=== PATIENT | male | born 1950 | race Caucasian/White ===

== ENCOUNTER 2017-02-13 12:30 | Emergency (ER) | payer OTHER ==
[2017-02-13] MEDS ORDERED: NS 1,000 ML IV ONE (12:52)
--- NOTE | 2017-02-13 13:01 | EDPHY ---
H & P Time Seen by Provider: 02/13/17 12:45 HPI/ROS: CHIEF COMPLAINT: Fatigue HISTORY OF PRESENT ILLNESS: Patient had just been feeling much more tired over the last 2 weeks. Feels achy is no energy and symptoms are worsening and severe now. Associated with a feeling of having intermittent low-grade fever, intermittent nausea last night which returned. No vomiting or diarrhea. No skin rash. No double vision or sore throat or dental problems. No chest pain or abdominal pain. REVIEW OF SYSTEMS: Eye: no change in vision ENT: no sore throat Cardiac: no chest pain or syncope Pulmonary: no cough or SOB Abdomen: no vomiting, diarrhea, abdominal pain Musculoskeletal: Back pain ongoing Skin: no rash Neuro: HPI no weakness or numbness in extremities, no trouble with balance or strength or sensation. Mild headache, only today. Constitutional: HPI : no urinary symptoms A comprehensive 10 point review of systems is otherwise negative aside from elements mentioned in the history of present illness. PAST MEDICAL HISTORY: Hypertension and high cholesterol. 3 years ago he had angiogram in [place], which showed nonobstructive coronary disease. Social history: Moved to [place] from [place] 2 years ago, last foreign travel was [employer] in September of this year. No known tick exposure, was recently in [place]. General Appearance: Alert and conversant, cooperative. Eyes: No scleral icterus. ENT, Mouth: Normal mucous membranes. Normal pharynx, no trismus or gum swelling. Respiratory: Normal respiratory effort, breath sounds equal, lungs are clear to auscultation. No rales or rhonchi. Cardiovascular: Regular rate and rhythm. No murmur. Gastrointestinal: Abdomen is soft and non tender. Neurological: Alert and oriented x3. Normally conversant. Face symmetric, normal movement and sensation in all extremities. Skin: Warm and dry, no rashes. Musculoskeletal: No peripheral edema and no joint swelling. No meningeal signs, normal range of motion of the neck. Psychiatric: Not agitated. Emergency Department course/MDM: Chest x-ray, multiple lab tests, UA. EKG. Short of breath at night, pretest probability for pulmonary embolism low likelihood. Discussed with Juan David Ingram for Dr. Glass, will add on TSH and West Nile AB and PCP office will followup with him and the results of those tests. 1410: results and f/u plan discussed with patient and family. Discussed that no definitive diagnosis established today, I think it is safe for him to follow up with his primary care physician early next week. Smoking Status: Never smoked Constitutional: Initial Vital Signs Temperature (C) 37.5 C 02/13/17 12:41 Heart Rate 88 02/13/17 12:41 Respiratory Rate 16 02/13/17 12:41 Blood Pressure 136/87 H 02/13/17 12:41 O2 Sat (%) 94 02/13/17 12:41 O2 Delivery Mode Room Air Allergies/Adverse Reactions: No Known Allergies Allergy (Unverified 02/13/17 12:45) Home Medications: Medication Instructions Recorded amLODIPine BESYLATE 02/13/17 Medical Decision Making - Diagnostics EKG Interpretation: 12-lead EKG interpreted by me; official reading is in trace master. My interpretation is sinus rhythm with atrial premature complex, no ischemic changes, rate 78. Imaging Results: Imaging Impressions Chest X-Ray 02/13/17 12:58 Impression: Peribronchial thickening suggests airways disease. Lingular segment opacity could reflect atelectasis or superimposed pneumonia. Chest x-ray shows scarring, patient states that he has been evaluated for this before, I think it is likely old. Imaging: I viewed and interpreted images myself Differential Diagnosis: Differential considered including but not limited to viral syndrome, meningitis , pneumonia, acute coronary syndrome, anemia or leukemia, other metabolic. - Data Points Laboratory Results: Laboratory Results 02/13/17 13:08 02/13/17 13:08 02/13/17 02/13/17 02/13/17 13:10 13:08 13:08 WBC RBC Hgb Hct MCV MCH MCHC RDW Plt Count MPV Neut % (Auto) Lymph % (Auto) [place] % (Auto) Eos % (Auto) Baso % (Auto) Nucleat RBC Rel Count Absolute Neuts (auto) Absolute Lymphs (auto) Absolute Monos (auto) Absolute Eos (auto) Absolute Basos (auto) Absolute Nucleated RBC Immature Gran % Immature Gran # D-Dimer 0.37 ug/mLFEU ug/mLFEU (0.00-0.50) Sodium Potassium Chloride Carbon Dioxide Anion Gap BUN Creatinine Estimated GFR Glucose Calcium Creatine Kinase Troponin I NT-Pro-B Natriuret Pep TSH Pending Urine Color YELLOW Urine Appearance CLEAR Urine pH 5.0 (5.0-7.5) Ur Specific [place] <= 1.005 (1.002-1.030) Urine Protein NEGATIVE (NEGATIVE) Urine Ketones NEGATIVE (NEGATIVE) Urine Blood TRACE H (NEGATIVE) Urine Nitrate NEGATIVE (NEGATIVE) Urine Bilirubin NEGATIVE (NEGATIVE) Urine Urobilinogen 0.2 EU EU (0.2-1.0) Ur Leukocyte Esterase NEGATIVE (NEGATIVE) Urine RBC 0-1 /hpf /hpf (0-3) Urine WBC NONE SEEN /hpf /hpf (0-3) Ur Epithelial Cells TRACE /lpf /lpf (NONE-1+) Urine Bacteria TRACE /hpf H /hpf (NONE SEEN) Urine Mucus TRACE /lpf /lpf (NONE-1+) Urine Glucose NEGATIVE (NEGATIVE) 02/13/17 02/13/17 13:08 13:08 WBC 4.84 10^3/uL 10^3/uL (3.80-9.50) RBC 5.13 10^6/uL 10^6/uL (4.40-6.38) Hgb 15.1 g/dL g/dL (13.7-17.5) Hct 43.5 % % (40.0-51.0) MCV 84.8 fL fL (81.5-99.8) MCH 29.4 pg pg (27.9-34.1) MCHC 34.7 g/dL g/dL (32.4-36.7) RDW 12.3 % % (11.5-15.2) Plt Count 246 10^3/uL 10^3/uL (150-400) MPV 9.5 fL fL (8.7-11.7) Neut % (Auto) 55.8 % % (39.3-74.2) Lymph % (Auto) 34.9 % % (15.0-45.0) [place] % (Auto) 6.4 % % (4.5-13.0) Eos % (Auto) 2.3 % % (0.6-7.6) Baso % (Auto) 0.4 % % (0.3-1.7) Nucleat RBC Rel Count 0.0 % % (0.0-0.2) Absolute Neuts (auto) 2.70 10^3/uL 10^3/uL (1.70-6.50) Absolute Lymphs (auto) 1.69 10^3/uL 10^3/uL (1.00-3.00) Absolute Monos (auto) 0.31 10^3/uL 10^3/uL (0.30-0.80) Absolute Eos (auto) 0.11 10^3/uL 10^3/uL (0.03-0.40) Absolute Basos (auto) 0.02 10^3/uL 10^3/uL (0.02-0.10) Absolute Nucleated RBC 0.00 10^3/uL 10^3/uL (0-0.01) Immature Gran % 0.2 % % (0.0-1.1) Immature Gran # 0.01 10^3/uL 10^3/uL (0.00-0.10) D-Dimer Sodium 139 mEq/L mEq/L (134-144) Potassium 4.3 mEq/L mEq/L (3.5-5.2) Chloride 104 mEq/L mEq/L (97-110) Carbon Dioxide 24 mEq/l mEq/l (22-31) Anion Gap 11 mEq/L mEq/L (8-16) BUN 13 mg/dL mg/dL (7-23) Creatinine 0.8 mg/dL mg/dL (0.7-1.3) Estimated GFR > 60 Glucose 111 mg/dL H mg/dL (70-100) Calcium 8.7 mg/dL mg/dL (8.5-10.4) Creatine Kinase 79 IU/L IU/L (0-224) Troponin I < 0.012 ng/mL ng/mL (0-0.034) NT-Pro-B Natriuret Pep 131 pg/mL H pg/mL (0-125) TSH Urine Color Urine Appearance Urine pH Ur Specific [place] Urine Protein Urine Ketones Urine Blood Urine Nitrate Urine Bilirubin Urine Urobilinogen Ur Leukocyte Esterase Urine RBC Urine WBC Ur Epithelial Cells Urine Bacteria Urine Mucus Urine Glucose Medications Given: Discontinued Medications Sodium Chloride (Ns) 1,000 mls @ 0 mls/hr IV ONCE ONE PRN Reason: Wide Open Stop: 02/13/17 12:53 Last Admin: 02/13/17 13:04 Dose: 1,000 mls Departure - Departure Disposition: Home, Routine, Self-Care Clinical Impression: Fatigue Qualifiers: Fatigue type: unspecified Qualified Code(s): R53.83 - Other fatigue Condition: Good Instructions: Fatigue (ED) Additional Instructions: You have a TSH (thyroid test) and West Nile pending; you can call in 48-72 hours for results to [phone]; also Dr. Glass's office will be following up on these results as well. Referrals: Kelly Glass MD [Primary Care Provider] - As per Instructions
[2017-02-13 13:22] LABS: % IMMATURE GRANULYOCYTES 0.2 % (0.0-1.1); ABSOLUTE IMMATURE GRANULOCYTES 0.01 10^3/uL (0.00-0.10); ADD DIFF? NO; ADD MORPH? NO; ADD SCAN? NO; ATYPICAL LYMPHOCYTE FLAG 60 (0-99); FRAGMENT RBC FLAG 0 (0-99); HEMATOCRIT 43.5 % (40.0-51.0); HEMOGLOBIN 15.1 g/dL (13.7-17.5); LEFT SHIFT FLG 0 (0-99); LIPEMIA HEMOLYSIS FLAG 90 (0-99); MEAN CELL HEMOGLOBIN 29.4 pg (27.9-34.1); MEAN CELL HEMOGLOBIN CONCENTR. 34.7 g/dL (32.4-36.7); MEAN CELL VOLUME 84.8 fL (81.5-99.8); MEAN PLATELET VOLUME 9.5 fL (8.7-11.7); PLATELET CLUMPS FLAG 10 (0-99); PLATELET COUNT 246 10^3/uL (150-400); RED BLOOD CELL COUNT 5.13 10^6/uL (4.40-6.38); RED CELL DISTRIBUTION WIDTH 12.3 % (11.5-15.2)
--- NOTE | 2017-02-13 13:31 | CPEKG ---
Heart Rate: 78 RR Interval: 769 P-R Interval: 152 QRSD Interval: 92 QT Interval: 412 QTC Interval: 470 P [place]: 68 QRS [place]: 66 T Wave [place]: 31 EKG Severity - OTHERWISE NORMAL ECG - EKG Impression: SINUS RHYTHM EKG Impression: ATRIAL PREMATURE COMPLEX Electronically Signed By: Ermias Lopez 13-Feb-2017 13:31:08
[2017-02-13 13:35] LABS: COLOR YELLOW; LEUKOCYTE ESTERASE,URINE NEGATIVE (NEGATIVE); NITRITE,URINE NEGATIVE (NEGATIVE)
[2017-02-13 13:39] LABS: ANION GAP 11 mEq/L (8-16); CALCIUM 8.7 mg/dL (8.5-10.4); CARBON DIOXIDE 24 mEq/l (22-31); CHLORIDE 104 mEq/L (97-110); CREATININE 0.8 mg/dL (0.7-1.3); GLOMERULAR FILTRATION RATE > 60; GLUCOSE 111 mg/dL (70-100); POTASSIUM 4.3 mEq/L (3.5-5.2); SODIUM 139 mEq/L (134-144)
[2017-02-13 13:55] LABS: BACTERIA TRACE /hpf (NONE SEEN); MUCUS TRACE /lpf (NONE-1+); RBC,URINE 0-1 /hpf (0-3); WBC,URINE NONE SEEN /hpf (0-3)
[2017-02-13 13:59] LABS: TROPONIN I < 0.012 ng/mL (0-0.034)
[2017-02-13 14:24] VITALS: BP 132/79; PULSE 78; RESP 18; TEMP 98.2; O2SAT 96
[2017-02-17 13:08] LABS: INTERPRETATION See Comments; WEST NILE VIRUS IGG Negative (Negative); WEST NILE VIRUS IGM Positive (Negative)
== END 2017-02-13 14:24 | disposition home or self-care (01) ==
LOC: CED 12:30
DX: R53.83 Other fatigue (principal); I10 Essential (primary) hypertension
CPT/HCPCS: 71020-PO; 80048-PO; 81003-PO; 81015-PO; 82550-PO; 83880-PO; 84443-PO; 84484-PO; 85025-PO; 85378-PO

== ENCOUNTER 2017-02-14 21:44 | Emergency (ER) | payer OTHER ==
[2017-02-14] MEDS ORDERED: HYDROmorphONE/DILAUDID 1 MG/ML SYR IVP ONE ×2 (22:35→23:35)
[2017-02-14] MEDS ORDERED: NS 1,000 ML IV ONE (22:36)
[2017-02-14] MEDS ORDERED: HYDROCOD/APAP 5/325 PREPACK#6 BTL TAKEHOME ONE (22:37)
--- NOTE | 2017-02-14 22:41 | EDPHY ---
H & P Stated Complaint: ongoing headache for 2 weeks,getting worse Time Seen by Provider: 02/14/17 22:06 HPI/ROS: CHIEF COMPLAINT: Headache and malaise HISTORY OF PRESENT ILLNESS: This is a generally healthy 66-year-old male who was seen for similar complaints yesterday. He returns today complaining of worsening headache. Headache is global, a dull sensation. He has been ill for the past 2 weeks with fever, fatigue and myalgias. Yesterday he developed a mild headache. Today the headache has worsened. He has been taking Tylenol and ibuprofen every 6 hours with no lasting relief. He has been febrile at home ; mostly "low-grade" temperatures but one temperature recorded today of 100.4 F. he has not experienced confusion, difficulty with speech, new numbness, new weakness, trouble walking, change in vision, or difficulty swallowing. He has not been out of the country. He did spend a month in [place] not long ago. He is outside a great deal and has been bitten by mosquitoes since returning to [place]. He has not had rash. He denies any respiratory symptoms, abdominal pain, diarrhea, constipation, or urinary symptoms. REVIEW OF SYSTEMS: A ten point review of systems was performed and is negative with the exception of the items mentioned in the HPI. Source: Patient, Family Exam Limitations: No limitations - Personal History Current Tetanus Diphtheria and Acellular Pertussis (TDAP): Yes - Medical/Surgical History Hx Asthma: No Hx Chronic Respiratory Disease: No Hx Diabetes: No Hx Cardiac Disease: No Hx Renal Disease: No Hx Cirrhosis: No Hx Alcoholism: No Hx HIV/AIDS: No Hx Splenectomy or Spleen Trauma: No Other PMH: HTN. high cholesterol - Social History Smoking Status: Never smoked Additional Social History: He lives with his for 47 years. Worked as a contractor. - Physical Exam Exam: General Appearance: Alert. Vital signs reviewed. Blood pressure 152/90. Temperature 37.8. Eyes: Pupils equal and round, no conjunctival injection, no discharge. Anicteric. ENT, Mouth: Mucous membranes are moist, no oropharyngeal erythema or edema. Neck: No lymphadenopathy, supple. No meningeal signs. Respiratory: Lungs are clear to auscultation; no wheezes, rales, or rhonchi. Cardiovascular: Regular rate and rhythm; no murmur, rub, or gallop. Gastrointestinal: Abdomen is soft and nontender, no masses or organomegaly, bowel sounds normal. Skin: Warm and dry, no rashes on exposed skin, normal color. Back: Nontender to palpation over the thoracolumbar spine. No CVAT. Extremities: No lower extremity edema, no calf tenderness or swelling. Neurological: Alert and oriented. Moving all four extremities easily and equally. Cranial nerves II through XII are examined and are intact (visual acuity not tested). Strength is 5 over 5 bilaterally with testing of all major motor groups. Sensation is intact to light touch over all 4 extremities. Deep tendon reflexes are 2+ in the biceps and knees bilaterally. Gait is normal. [id number] is performed accurately. Psychiatric: Normal affect. Constitutional: Initial Vital Signs Temperature (C) 37.8 C 02/14/17 22:07 Heart Rate 87 02/14/17 22:07 Respiratory Rate 16 02/14/17 22:07 Blood Pressure 152/90 H 02/14/17 22:07 O2 Sat (%) 93 02/14/17 22:07 O2 Delivery Mode Room Air Allergies/Adverse Reactions: No Known Allergies Allergy (Verified 02/15/17 07:09) Home Medications: Medication Instructions Recorded amLODIPine BESYLATE [Norvasc 5 mg 5 mg PO HS 02/13/17 (*)] Acyclovir 400 mg PO DAILY PRN 02/15/17 Atorvastatin Calcium [Lipitor 20 20 mg PO HS 02/15/17 mg (*)] Herbals/Supplements -Info Only 1 ea PO DAILY 02/15/17 Medical Decision Making ED Course/Re-evaluation: Blood work was performed yesterday. West Nile testing is pending. We discussed lumbar puncture. I do not think that this is bacterial meningitis but viral meningitis is a possibility. He does not have any meningeal signs. He understands that viral meningitis would be treated symptomatically. I do not suspect subarachnoid hemorrhage. We talked about the risks and benefits of a lumbar puncture in this situation. At this point in time he prefers to forego this procedure. He understands that the diagnosis remains unclear. He is able to make his own medical decisions. We discussed the risks and the benefits of lumbar puncture. His neurologic exam is normal. His mental status is normal. There is no evidence of encephalopathy. His main concern tonight is of continued headache and lack of sleep. He is mostly interested in pain control and understands that this is likely a viral process. He will be given 1 L IV normal saline and Dilaudid 0.5 mg IV. With IV fluids and pain medication he felt better, while enough to return home. He is discharged in good condition. Danger signs were reviewed with both the patient and his . Differential Diagnosis: I considered a differential diagnosis of headache including but not limited to subarachnoid hemorrhage, migraine headache, tension headache and infectious causes such as meningitis, pharyngitis and sinusitis. - Data Points Medications Given: Discontinued Medications Hydrocodone Bitart/Acetaminophen ([place] 5/325mg Prepack#6) 1 btl TAKEHOME EDNOW ONE Stop: 02/14/17 22:38 Last Admin: 02/14/17 23:08 Dose: 1 btl Hydromorphone HCl (Dilaudid) 0.5 mg IVP EDNOW ONE Stop: 02/14/17 22:36 Last Admin: 02/14/17 22:55 Dose: 0.5 mg Hydromorphone HCl (Dilaudid) 0.5 mg IVP EDNOW ONE Stop: 02/14/17 23:36 Last Admin: 02/14/17 23:48 Dose: 0.5 mg Sodium Chloride (Ns) 1,000 mls @ 0 mls/hr IV EDNOW ONE; Wide Open PRN Reason: Protocol Stop: 02/14/17 22:37 Last Admin: 02/14/17 22:50 Dose: 1,000 mls Departure - Departure Disposition: Home, Routine, Self-Care Clinical Impression: Viral syndrome Headache Qualifiers: Headache type: other headache syndrome Qualified Code(s): G44.89 - Other headache syndrome Condition: Good Instructions: Acute Headache (ED), Viral Syndrome (ED) Additional Instructions: Adult Pain & Fever Control: We recommend Acetaminophen (Tylenol) and Ibuprofen (Motrin,Advil) for pain and fever control. When fever is high or pain severe, both drugs can be used at the same time, but at different intervals. Please note the time differences. Your dose is: Acetaminophen [650]mg every 4 to 6 hours Ibuprofen [600]mg every [6] hours with food OR Note: do not take Acetaminophen with Hydrocodone (Vicodin, Lortab) or Oycodone (Percocet). These medications also contain Acetaminophen. No more than 3000mg of Acetaminophen should be taken in 24 hours (for an adult). Please watch your overall tylenol dose. Call Dr. Glass's office first thing in the morning to arrange to be seen. Let the office staff know that you have been to the emergency department two days in a row. If you are worse--confusion, vomiting, new weakness, new numbness, trouble speaking, any new or concerning symptoms--you should be re-evaluated immediately (Call 911). Referrals: Kelly Glass MD [Primary Care Provider] - As per Instructions
[2017-02-15 00:26] VITALS: BP 130/72; PULSE 72; RESP 12; TEMP 99.1; O2SAT 92
== END 2017-02-15 00:24 | disposition home or self-care (01) ==
LOC: CED 21:44
DX: G44.89 Other headache syndrome (principal); B34.9 Viral infection, unspecified; I10 Essential (primary) hypertension; E86.9 Volume depletion, unspecified
CPT/HCPCS: 96361; 96374; 96376; 99284; J1170

== ENCOUNTER 2017-02-15 06:59 | Inpatient (IN) | payer OTHER ==
--- NOTE | 2017-02-15 07:29 | EDPHY ---
H & P Stated Complaint: Fever, h/a ~ 2wks;at [facility] x 2 as well as PCP's office. HPI/ROS: CHIEF COMPLAINT: Persistent headache, fever HISTORY OF PRESENT ILLNESS: The patient is a 66 y/o male returning to the ED for the 3rd time in the last 3 days with a worsening headache. He's had intermittent nausea, fever, and fatigue for the last 2 weeks. 2 days ago he developed a headache that has not improved and developed dry heaving today. He rates his headache at an 8/10 in severity. The HORVATH was alleviated temporarily by Dilaudid that he received in the ED yesterday. He declined a lumbar puncture yesterday for evaluation of meningitis. He denies cough, chest pain, dysuria, vision changes. He notes he's had dyspnea that wakes him from sleep for the last month. He recently traveled to [place] where he did have several mosquito bites, but denies any known tick bites or other infectious exposures. REVIEW OF SYSTEMS: Constitutional: see HPI Eyes: No visual changes ENT: No sore throat Respiratory: see HPI Cardiac: No chest pain Gastrointestinal: See HPI Genitourinary: No hematuria, no dysuria Musculoskeletal: No leg pain or swelling Skin: No rash Neurological: See HPI Psychiatric: No depression - Personal History Current Tetanus Diphtheria and Acellular Pertussis (TDAP): Yes - Medical/Surgical History PMH: PMH includes: 1. Hypertension 2. Hyperlipidemia Prior medical records reviewed including ED visit 02/14/17 for the same symptoms. Hx Asthma: No Hx Chronic Respiratory Disease: No Hx Diabetes: No Hx Cardiac Disease: No Hx Renal Disease: No Hx Cirrhosis: No Hx Alcoholism: No Hx HIV/AIDS: No Hx Splenectomy or Spleen Trauma: No Other PMH: HTN. high cholesterol - Social History Smoking Status: Never smoked Additional Social History: at bedside. Nonsmoker. - Physical Exam Exam: General Appearance: Alert, appears uncomfortable Eyes: Pupils equal and round, no conjunctival pallor or injection ENT, Mouth: Mucous membranes moist Neck: Normal inspection, supple Respiratory: Lungs are clear to auscultation Cardiovascular: Regular rate and rhythm Gastrointestinal: Abdomen is soft and non-tender Neurological: Alert, oriented x3, cranial nerves II through XII intact, motor 5 /5, sensory intact to light touch, normal gait Skin: Warm and dry, no rash Extremities: Nontender, no pedal edema Psychiatric: Mood and affect normal Constitutional: Initial Vital Signs Temperature (C) 37.1 C 02/15/17 07:10 Heart Rate 89 02/15/17 07:10 Respiratory Rate 16 02/15/17 07:10 Blood Pressure 120/81 H 02/15/17 07:10 O2 Sat (%) 92 02/15/17 07:10 O2 Delivery Mode Nasal Cannula O2 (L/minute) 2 Allergies/Adverse Reactions: No Known Allergies Allergy (Verified 02/15/17 07:09) Home Medications: Medication Instructions Recorded amLODIPine BESYLATE [Norvasc 5 mg 5 mg PO HS 02/13/17 (*)] Acyclovir 400 mg PO DAILY PRN 02/15/17 Atorvastatin Calcium [Lipitor 20 20 mg PO HS 02/15/17 mg (*)] Herbals/Supplements -Info Only 1 ea PO DAILY 02/15/17 Medical Decision Making - Diagnostics Imaging Results: CT scan of the brain: No acute findings. Chest x-ray: NAD Imaging: Discussed imaging studies w/ scallop cutter Radiologist, I viewed and interpreted images myself Procedures: Procedure: Lumbar puncture Indication: headache After verbal informed consent from patient explaining the risks including infection, bleeding, and neurologic damage, a lumbar puncture was performed after the patient was prepped and draped in the usual fashion. The back was anesthetized with 1% lidocaine. 2 attempts, unsuccessful, will need LP under flouroscopy. ED Course/Re-evaluation: This is a 66 y/o male who presents with a 3-day history of unimproved headache and 2 weeks of intermittent nausea, fever, and fatigue. He additionally has been experiencing dyspnea that wakes him from sleep for about 1 month. He was evaluated at the ED yesterday and his headache was treated symptomatically with some temporary relief. Apart from appearing uncomfortable, his exam is unremarkable. Vitals are within normal limits. Clinical presentation concerning for meningitis, a mosquito-bourne illness, or possibly have a structural [employer] etiology. In addition to symptom management, I will repeat his chest x-ray due to possible early lingular infiltrate seen on prior x-ray. We also plan to perform a head CT to rule out structural cause of his symptoms. I discussed recommendation for a lumbar puncture if his imaging is negative to rule out meningitis. He agrees to this treatment plan. IV established. Labs drawn including CBC, CHEM, lactic acid, and cultures. 1mg IV Dilaudid, 4mg IV Zofran, and 1L IV NS administered for symptoms. Reassessed patient and discussed work up thus far. His is head CT is negative and his chest x-ray looks similar to yesterday. I recommended proceeding with the lumbar puncture to rule out meningitis, which he agrees to. Additional 4mg IV Zofran and 0.5mg IV Dilaudid administered for pain and nausea. Lumbar puncture attempted by me, though I was unsuccessful. Discussed with the patient and his . He will need to have LP under fluoroscopy. 9:30 a.m.-reassessment, severe headache has returned. Awaiting LP under fluoroscopy. Morphine 6 mg IV given. Noon-reassessment, continues to have severe headache, still awaiting lumbar puncture. 1348: Consulted with hospitalist service. Dr. Her accepts admission for intractable headache. LP is still pending. 1339: Patient returned from fluoroscopy. He now has a fever of 38.3C and continues to have pain. 1000mg PO Tylenol administered for fever and 6mg IV morphine administered for pain. CSF results consistent with meningitis, most likely viral in etiology. No antibiotics given in the emergency department. The patient was stable throughout his emergency department stay. The headache was difficult to control no required multiple doses of IV narcotics. There is no evidence of severe sepsis. Differential Diagnosis: Headache and fever including but not limited to pneumonia, subarachnoid hemorrhage, migraine headache, tension headache and infectious causes such as pharyngitis and sinusitis. - Data Points Laboratory Results: Laboratory Results 02/15/17 07:40 02/15/17 07:40 Microbiology Results: MICROBIOLOGY 02/15/17 10:27 Cerebral Spinal Fluid Gram Stain - Final Medications Given: Discontinued Medications Acetaminophen (Tylenol) 650 mg PO EDNOW ONE Stop: 02/15/17 13:50 Last Admin: 02/15/17 13:56 Dose: 650 mg Hydromorphone HCl (Dilaudid) 1 mg IVP EDNOW ONE Stop: 02/15/17 07:31 Last Admin: 02/15/17 07:37 Dose: 1 mg Hydromorphone HCl (Dilaudid) 0.5 mg IVP EDNOW ONE Stop: 02/15/17 08:28 Last Admin: 02/15/17 08:27 Dose: 0.5 mg Sodium Chloride (Ns) 1,000 mls @ 0 mls/hr IV ONCE ONE; Wide Open PRN Reason: Protocol Stop: 02/15/17 07:31 Last Admin: 02/15/17 07:39 Dose: 1,000 mls Morphine Sulfate (Morphine) 6 mg IVP Q1H PRN PRN Reason: Pain, Severe Unable to Take PO Stop: 02/15/17 11:40 Last Admin: 02/15/17 10:26 Dose: 6 mg Morphine Sulfate (Morphine) 6 mg IVP EDNOW ONE Stop: 02/15/17 13:51 Last Admin: 02/15/17 14:00 Dose: 6 mg Ondansetron HCl (Zofran) 4 mg IVP EDNOW ONE Stop: 02/15/17 07:31 Last Admin: 02/15/17 07:38 Dose: 4 mg Ondansetron HCl (Zofran) 4 mg IVP EDNOW ONE Stop: 02/15/17 08:28 Last Admin: 02/15/17 08:27 Dose: 4 mg Promethazine HCl (Phenergan) 12.5 mg IVP ONCE ONE Stop: 02/15/17 13:51 Last Admin: 02/15/17 13:57 Dose: 12.5 mg Departure - Departure Disposition: [facility] Acute Clinical Impression: Meningitis Condition: Fair Report Scribed for: Justine Brantley Report Scribed by: Juliet Odell Date of Report: 02/15/17 Time of Report: 07:29 Physician Review and Approval Statement: 02/15/17 07:29 Portions of this note were transcribed by a medical device assembler. I personally performed a history, physical exam, medical decision making, and confirmed accuracy of information the transcribed note.
[2017-02-15] MEDS ORDERED: NS 1,000 ML IV ONE (07:30)
[2017-02-15] MEDS ORDERED: HYDROmorphONE/DILAUDID 1 MG/ML SYR IVP ONE ×2 (07:30→08:27)
[2017-02-15] MEDS ORDERED: ONDANSETRON 4 MG/2 ML VIAL IVP ONE ×2 (07:30→08:27)
[2017-02-15 07:49] LABS: % IMMATURE GRANULYOCYTES 0.3 % (0.0-1.1); ABSOLUTE IMMATURE GRANULOCYTES 0.03 10^3/uL (0.00-0.10); ADD DIFF? NO; ADD MORPH? NO; ADD SCAN? NO; ATYPICAL LYMPHOCYTE FLAG 30 (0-99); FRAGMENT RBC FLAG 0 (0-99); HEMOGLOBIN 14.7 g/dL (13.7-17.5); LEFT SHIFT FLG 0 (0-99); LIPEMIA HEMOLYSIS FLAG 90 (0-99); MEAN CELL HEMOGLOBIN 30.1 pg (27.9-34.1); MEAN CELL VOLUME 85.9 fL (81.5-99.8); MEAN PLATELET VOLUME 9.5 fL (8.7-11.7); PLATELET CLUMPS FLAG 0 (0-99); PLATELET COUNT 255 10^3/uL (150-400); RED BLOOD CELL COUNT 4.89 10^6/uL (4.40-6.38); RED CELL DISTRIBUTION WIDTH 12.3 % (11.5-15.2)
[2017-02-15 08:13] LABS: ANION GAP 9 mEq/L (8-16); CALCIUM 8.8 mg/dL (8.5-10.4); CARBON DIOXIDE 25 mEq/l (22-31); CHLORIDE 103 mEq/L (97-110); CREATININE 0.9 mg/dL (0.7-1.3); GLOMERULAR FILTRATION RATE > 60; GLUCOSE 123 mg/dL (70-100); POTASSIUM 4.1 mEq/L (3.5-5.2); SODIUM 137 mEq/L (134-144)
[2017-02-15] MEDS ORDERED: HYDROmorphONE/DILAUDID 1 MG/ML SYR ONE (08:22)
[2017-02-15] MEDS ORDERED: ONDANSETRON 4 MG/2 ML VIAL ONE (08:22)
[2017-02-15 09:09] LABS: INR 1.14 (0.83-1.16); PROTIME(PATIENT) 14.5 SEC (12.0-15.0)
[2017-02-15 09:10] LABS: APTT 26.3 SEC (23.0-38.0)
[2017-02-15] MEDS ORDERED: LIDOCAINE 1% 300 MG/30 ML SDV ONE (12:04)
[2017-02-15] MEDS ORDERED: ACETAMINOPHEN 325 MG TAB PO ONE (13:49)
[2017-02-15] MEDS ORDERED: PROMETHAZINE HCL 25 MG/ML INJ IVP ONE (13:50)
[2017-02-15 14:19] LABS: PROTEIN, CSF 39 mg/dL (12-60)
[2017-02-15 14:26] LABS: CSF APPEARANCE CLEAR (CLEAR); CSF COLOR COLORLESS (COLORLESS); CSF SUPERNATANT COLORLESS (COLORLESS); WBC, CSF 84 /mm3 (0-5)
[2017-02-15 14:27] LABS: CSF APPEARANCE CLEAR (CLEAR); CSF COLOR COLORLESS (COLORLESS); CSF SUPERNATANT COLORLESS (COLORLESS); WBC, CSF 58 /mm3 (0-5)
[2017-02-15] MEDS ORDERED: PROMETHAZINE HCL 25 MG TAB PO PRN (15:20)
[2017-02-15] MEDS ORDERED: diphenhydrAMINE 25 MG CAP PO PRN (15:20)
[2017-02-15] MEDS ORDERED: ONDANSETRON DISINTEGRATING 4 MG TAB PO PRN (15:20)
[2017-02-15] MEDS ORDERED: PROCHLORPERAZINE MALEATE 10 MG TAB PO PRN (15:24)
[2017-02-15] MEDS: NS 1,000 ML IV SCH ×2 (16:57→22:00)
--- NOTE | 2017-02-15 17:17 | PDGENHP ---
History and Physical - Chief Complaint acute headache - History of Present Illness primary care provider: Dr. Kelly Glass Primary friction saw operator: Dr. Patel HPI: 66-year-old male presenting with acute headache characterized as severe, located globally, 8/10 pain with associated dry heaves, fatigue, fever of 100.4 F, with onset of symptoms 3 days ago and duration persistent worsening thereafter. These symptoms in the context of approximately 2 weeks of diffuse fatigue, myalgias, shortness of breath exacerbated by lying supine as well as nonproductive cough. Prior to the onset of those symptoms, the patient had otherwise been feeling well and he had been vacationing in [place]. Prior to the onset of symptoms, he had been physically active, ambulating and exercising well without any chest pain or shortness of breath. During the past 3 days, the patient has been to the emergency department twice, and received Dilaudid, which transiently alleviated his headache. He also received guidance to receive Tylenol and ibuprofen, which has not had any benefit. In our emergency department, he received Phenergan and this seems to be alleviating his nausea, resulting in fatigue. History Information - Allergies/Home Medication List Allergies/Adverse Reactions: No Known Allergies Allergy (Verified 02/15/17 07:09) Home Medications: amLODIPine BESYLATE [Norvasc 5 mg (*)] 5 mg PO HS 02/13/17 [Last Taken 02/14/17] Acyclovir 400 mg PO DAILY PRN 02/15/17 [Last Taken Unknown] Atorvastatin Calcium [Lipitor 20 mg (*)] 20 mg PO HS 02/15/17 [Last Taken ] Herbals/Supplements -Info Only 1 ea PO DAILY 02/15/17 [Last Taken Unknown] I have personally reviewed and updated: family history, medical history, social history, surgical history - Past Medical History hypertension, hyperlipidemia - Surgical History Additional surgical history: Shoulder, knee, Achilles - Family History Additional family history: no recent sick family contacts, mother with Alzheimer 's dementia - Social History Smoking Status: Never smoked Alcohol Use: Other (regular drinker of beer, has not had an alcoholic beverage in 2 weeks) Drug Use: None Additional social history: contractor, physically active Review of Systems ROS: 10pt was reviewed & negative except for what was stated in HPI & below Constitutional: Reports: fever, malaise, weakness Respiratory: Reports: cough Gastrointestinal: Reports: vomitting, nausea Neurological: Reports: headache Physical Exam Temp Pulse Resp BP Pulse Ox 37.8 C 89 18 107/63 90 L 02/15/17 15:38 02/15/17 15:38 02/15/17 15:38 02/15/17 15:38 02/15/17 15:38 Constitutional: no apparent distress, appears nourished, uncomfortable, No chronically ill appearing, No unkempt Eyes: PERRL, anicteric sclera, EOMI Ears, Nose, Mouth, Throat: moist mucous membranes, hearing normal, ears appear normal, no oral mucosal ulcers, other ( no tonsillar exudate) Cardiovascular: regular rate and rhythym, no murmur, rub, or gallop, No edema Respiratory: no respiratory distress, no rales or rhonchi, clear to auscultation Gastrointestinal: normoactive bowel sounds, soft, non-tender abdomen, no palpable masses, No distension Skin: warm, normal color, No abrasion, No rash Neurologic: AAOx3, sensation intact bilaterally, No weakness ( motor strength 5/ 5 bilateral upper and lower extremities) Psychiatric: not anxious, not encephalopathic, flat affect, No agitated Lymph, Heme, Immunologic: other ( tender, 1 cm submandibular lymph nodes without any anterior or posterior cervical lymphadenopathy) Lab Data & Imaging Review 02/15/17 07:40 02/15/17 07:40 WBC 9.32 10^3/uL (3.80-9.50) 02/15/17 07:40 RBC 4.89 10^6/uL (4.40-6.38) 02/15/17 07:40 Hgb 14.7 g/dL (13.7-17.5) 02/15/17 07:40 Hct 42.0 % (40.0-51.0) 02/15/17 07:40 MCV 85.9 fL (81.5-99.8) 02/15/17 07:40 MCH 30.1 pg (27.9-34.1) 02/15/17 07:40 MCHC 35.0 g/dL (32.4-36.7) 02/15/17 07:40 RDW 12.3 % (11.5-15.2) 02/15/17 07:40 Plt Count 255 10^3/uL (150-400) 02/15/17 07:40 MPV 9.5 fL (8.7-11.7) 02/15/17 07:40 Neut % (Auto) 83.5 % (39.3-74.2) H 02/15/17 07:40 Lymph % (Auto) 12.2 % (15.0-45.0) L 02/15/17 07:40 [place] % (Auto) 3.4 % (4.5-13.0) L 02/15/17 07:40 Eos % (Auto) 0.4 % (0.6-7.6) L 02/15/17 07:40 Baso % (Auto) 0.2 % (0.3-1.7) L 02/15/17 07:40 Nucleat RBC Rel Count 0.0 % (0.0-0.2) 02/15/17 07:40 Absolute Neuts (auto) 7.77 10^3/uL (1.70-6.50) H 02/15/17 07:40 Absolute Lymphs (auto) 1.14 10^3/uL (1.00-3.00) 02/15/17 07:40 Absolute Monos (auto) 0.32 10^3/uL (0.30-0.80) 02/15/17 07:40 Absolute Eos (auto) 0.04 10^3/uL (0.03-0.40) 02/15/17 07:40 Absolute Basos (auto) 0.02 10^3/uL (0.02-0.10) 02/15/17 07:40 Absolute Nucleated RBC 0.00 10^3/uL (0-0.01) 02/15/17 07:40 Immature Gran % 0.3 % (0.0-1.1) 02/15/17 07:40 Immature Gran # 0.03 10^3/uL (0.00-0.10) 02/15/17 07:40 PT 14.5 SEC (12.0-15.0) 02/15/17 08:55 INR 1.14 (0.83-1.16) 02/15/17 08:55 APTT 26.3 SEC (23.0-38.0) 02/15/17 08:55 VBG Lactic Acid 1.0 mmol/L (0.7-2.1) 02/15/17 08:32 Sodium 137 mEq/L (134-144) 02/15/17 07:40 Potassium 4.1 mEq/L (3.5-5.2) 02/15/17 07:40 Chloride 103 mEq/L (97-110) 02/15/17 07:40 Carbon Dioxide 25 mEq/l (22-31) 02/15/17 07:40 Anion Gap 9 mEq/L (8-16) 02/15/17 07:40 BUN 13 mg/dL (7-23) 02/15/17 07:40 Creatinine 0.9 mg/dL (0.7-1.3) 02/15/17 07:40 Estimated GFR > 60 02/15/17 07:40 Glucose 123 mg/dL (70-100) H 02/15/17 07:40 Calcium 8.8 mg/dL (8.5-10.4) 02/15/17 07:40 Fl Pathologist Review Steven WESLEY MD 02/15/17 10:27 CSF Tube Number 1 02/15/17 10:27 CSF Appearance CLEAR (CLEAR) 02/15/17 10:27 CSF Color COLORLESS (COLORLESS) 02/15/17 10:27 CSF Supernatant COLORLESS (COLORLESS) 02/15/17 10:27 CSF WBC 58 /mm3 (0-5) H 02/15/17 10:27 CSF RBC 17 /mm3 (0-0) H 02/15/17 10:27 CSF Neutrophils % 88 % (0-6) H 02/15/17 10:27 CSF Lymphocytes % 9 % (0-100) 02/15/17 10:27 CSF Monos/Macrophage % 3 % (0-45) 02/15/17 10:27 CSF Glucose 69 mg/dL (50-75) 02/15/17 10:27 CSF Total Protein 39 mg/dL (12-60) 02/15/17 10:27 CSF West Nile IgG Ab Cancelled 02/15/17 10:26 CSF West Nile IgM Ab Cancelled 02/15/17 10:26 CSF West Nile Interp Cancelled 02/15/17 10:26 HSV Source Description Cancelled 02/15/17 10:26 Herpes Simplex Culture Cancelled 02/15/17 10:26 HSV I DNA PCR Cancelled 02/15/17 10:26 HSV II DNA PCR Cancelled 02/15/17 10:26 Visualized and Interpreted Chest x-ray results: Yes Chest X-Ray results: other ( hypoventilation) Assessment & Plan Assessment: 66-year-old male presents with acute headache and suspected viral encephalitis Plan: 1. Suspected viral encephalitis. Acute, new problem this provider, further workup indicated. Evidenced by CSF demonstrating pleocytosis with a neutrophil predominance, in the setting of headache, cognitive fatigue, systemic viral syndrome -outside records reviewed (ED report by Dr. Rona Moura 02/14, indicating patient declined LP, discharged home w/ rec ibuprofen/tylenol for suspected viral meningitis/syndrome) -CSF sent for HSV, West Nile virus -discussed with Dr. Mauricio Crabtree, consult appreciated, he advises that this may be secondary to enterovirus and we will not initiate empiric IV acyclovir at this time -supportive care with IV fluids, antiemetics, pain control -send respiratory viral panel, GS/Cx pending 2. Hypertension. Chronic, continue home medication Diet. Regular as tolerated Prophylaxis. Moderate risk patient, Lovenox 40 Code. Full Disposition. Anticipated discharge is uncertain, anticipated length stay is greater than 48 hours warranting inpatient admission status for suspected acute viral encephalitis requiring close monitoring and reassessment of culture results from lumbar puncture.
--- NOTE | 2017-02-15 18:39 | GCON ---
[f rep st] CONSULTATION INFECTIOUS DISEASES CONSULTATION REFERRING PHYSICIAN: Mike Hopkins MD REASON FOR CONSULTATION: Meningitis. HISTORY OF PRESENT ILLNESS: The patient is a 66-year-old male with a past medical history of hypertension, hypercholesterolemia, who I am asked to see in consultation for meningitis. The complains developing nausea, fatigue, and malaise toward the end of January. He had intermittent low-grade temperatures primarily in the 99 degree range. Over the last 3 days, he developed abrupt onset of severe headache. He did not obtain any relief with Tylenol or Advil. He did have mild associated nausea and threw up this morning. Headache was such that he sought care in the emergency department beginning on 02/13/2017. Evaluation at that time showed normal CBC and chemistry profile. Findings were felt to be most compatible with a viral syndrome. West Nile virus antibodies were obtained, and the patient was advised to follow up with his PCP. He continued to have symptoms, and returned to the Emergency Department on 2016 with similar symptoms, but persistent and worsening headache. His temperature at home yesterday was noted to be 100.4. Lumbar puncture was discussed with the patient, and the patient prefer to forego LP at that point in time with working diagnosis of viral syndrome. Today, he had persisting headache with nausea and 1 episode of vomiting prompting return to Emergency Department. He underwent lumbar puncture earlier today with CSF showing 84 white blood cells, 14 red blood cells, 88% neutrophils with glucose 69, and protein 39. The patient does note that he has had mosquito exposure, both in [place] and in [place] where he spent the month of January. He did not note any tick exposure. He did spend time in a reservoir while in [place]. No exposure to animals. Traveled to [place] in September without incident. Does have grandchildren whom he was with in [place]. The patient has not noted skin rash , visual change, sore throat, cough, shortness of breath, diarrhea, urinary tract symptoms, myalgias or arthralgias. He has had associated chills. His appetite has been decreased, but he has been able to tolerate p.o. intake. The patient received Phenergan, Dilaudid and morphine in the Emergency Department and now feels clinically improved. Based on the patient's persistent headache and findings of meningitis, he has now been admitted for further care. PAST MEDICAL HISTORY: The patient does have cold sores periodically; these are normally prevented by taking at time of trigger such as sun or wind exposure, hypertension, hypercholesterolemia. PAST SURGICAL HISTORY: Shoulder surgery, hernia repair. CURRENT MEDICATIONS: Norvasc 5 mg p.o. at bedtime, Lipitor 20 mg p.o. at bedtime, Lovenox 40 mg subcu daily, Toradol, morphine, Compazine, Phenergan as needed. ALLERGIES: No known drug allergies. SOCIAL HISTORY: The patient does not smoke. He drinks 1 beer 4-5 times per week. Traveled to [place] as above, mosquito exposure as above. FAMILY HISTORY: Hypertension. REVIEW OF SYSTEMS: Outside that noted in the HPI, remainder of 10 system review is unremarkable. PHYSICAL EXAMINATION: VITAL SIGNS: Temperature maximum 38.3, temperature current 37.8, heart rate 89, respiratory rate 18, blood pressure 107/63, oxygen saturation 90% on room air. GENERAL: The patient is well nourished, well developed, in no acute distress. He appears nontoxic. HEENT: There is no scleral icterus, conjunctival injection, or conjunctival petechiae. Oropharynx shows no lesions with moist mucous membranes. Dentition is in fair repair. There is no nasal discharge. There is no tenderness over the frontal, maxillary or mastoid areas. NECK: Supple without lymphadenopathy or palpable thyromegaly. No meningismus. CHEST: Clear to auscultation bilaterally without adventitious sounds. Respiratory effort is normal. CARDIOVASCULAR: Regular rate and rhythm without murmurs, gallops, or rubs. ABDOMEN: Soft, nontender, nondistended. There is no palpable organomegaly. Bowel sounds are present. MUSCULOSKELETAL: No cyanosis, clubbing, or edema. SKIN: No rashes present. No stigmata of endocarditis. SKIN: Warm and dry to touch. NEUROLOGIC: The patient is alert and interacts appropriately with examiner. Cranial nerves 2-12 are grossly intact. Sensation is grossly intact. Motor function is intact. Cerebellar function is intact by finger-nose testing. The patient is able to name stethoscope and ID badge without difficulty. LABORATORY DATA: White blood cell count 9.3, hematocrit 42.0, platelets 255, neutrophils 84%. Serum creatinine is 0.9, venous lactate is 1.0, INR 1.1. Urinalysis on 02/13/2017 showed 0-1 red blood cells and no white blood cells. CSF findings outlined in history of present illness. Gram stain is negative with culture pending. Blood cultures x2 are pending. West Nile virus antibodies from 02/13/2017 on serum are pending. CSF, HSV 1, and 2 PCRs are pending. CSF, West Nile virus antibodies are pending. Head CT without contrast shows no abnormalities. Chest x-ray shows hypoventilatory changes. IMPRESSION: Meningitis: Clinical presentation and CSF findings consistent with meningitis. The patient has a neutrophilic predominance, although absolute CSF count is less than 100. Suspect this is most likely viral in etiology despite neutrophilic predominance. This can typically be seen with enterovirus, which is more common in late summer. Doubt this represents bacterial meningitis based on clinical course and degree of pleocytosis. Other viral etiologies such as HSV, VZV, or West Nile virus also considerations. No clinical findings of encephalitis on examination. RECOMMENDATIONS: 1. Observe off antibiotics and antivirals. 2. Add to CSF enterovirus PCR and VZV PCR. 3. Followup CSF studies as available. 4. Follow up blood cultures as available. 5. Continue supportive care for headache and nausea. Thank you for this consultation. We will continue to follow the patient with you. /[id number]/MODL MTDD
[2017-02-15] MEDS: ATORVASTATIN CALCIUM 20 MG TAB PO SCH (20:54)
[2017-02-15] MEDS: amLODIPine BESYLATE 5 MG TAB PO SCH (20:54)
[2017-02-15] MEDS: KETOROLAC 15 MG/1 ML SDV IVP PRN (20:55)
[2017-02-15] MEDS: ACETAMINOPHEN 500 MG TAB PO PRN (21:03)
[2017-02-16] MEDS: PROMETHAZINE HCL 25 MG/ML INJ IVP PRN (03:56)
[2017-02-16] MEDS: NS 1,000 ML IV SCH (03:59)
[2017-02-16] MEDS: ACETAMINOPHEN 500 MG TAB PO PRN ×3 (05:39→18:25)
[2017-02-16 05:48] LABS: % IMMATURE GRANULYOCYTES 0.3 % (0.0-1.1); ABSOLUTE IMMATURE GRANULOCYTES 0.03 10^3/uL (0.00-0.10); ADD DIFF? NO; ADD MORPH? NO; ADD SCAN? NO; ATYPICAL LYMPHOCYTE FLAG 30 (0-99); FRAGMENT RBC FLAG 0 (0-99); HEMATOCRIT 37.6 % (40.0-51.0); HEMOGLOBIN 12.8 g/dL (13.7-17.5); LEFT SHIFT FLG 0 (0-99); LIPEMIA HEMOLYSIS FLAG 90 (0-99); MEAN CELL HEMOGLOBIN 29.8 pg (27.9-34.1); MEAN CELL VOLUME 87.4 fL (81.5-99.8); MEAN PLATELET VOLUME 9.3 fL (8.7-11.7); PLATELET CLUMPS FLAG 30 (0-99); PLATELET COUNT 228 10^3/uL (150-400); RED CELL DISTRIBUTION WIDTH 12.4 % (11.5-15.2)
[2017-02-16 06:02] LABS: ALANINE AMINOTRANSFERASE 36 IU/L (21-72); ALBUMIN 3.2 g/dL (3.5-5.0); ALKALINE PHOSPHATASE 56 IU/L (38-126); ANION GAP 9 mEq/L (8-16); ASPARTATE AMINOTRANSFERASE 20 IU/L (17-59); BILIRUBIN,TOTAL 1.1 mg/dL (0.1-1.4); C-REACTIVE PROTEIN 6.7 mg/L (<10.0); CALCIUM 8.1 mg/dL (8.5-10.4); CARBON DIOXIDE 22 mEq/l (22-31); CHLORIDE 107 mEq/L (97-110); CREATININE 0.9 mg/dL (0.7-1.3); GLOMERULAR FILTRATION RATE > 60; GLUCOSE 109 mg/dL (70-100); POTASSIUM 3.8 mEq/L (3.5-5.2); SODIUM 138 mEq/L (134-144); TOTAL PROTEIN 5.6 g/dL (6.3-8.2)
[2017-02-16 07:34] LABS: SEDIMENTATION RATE 7 MM/HR (0-20)
[2017-02-16] MEDS ORDERED: Herbals/Supplements -Info Only PO SCH (09:00)
[2017-02-16] MEDS: ENOXAPARIN 40 MG/0.4 ML SYR SC SCH (09:12)
[2017-02-16] MEDS: KETOROLAC 15 MG/1 ML SDV IVP PRN ×3 (09:17→21:23)
--- NOTE | 2017-02-16 15:28 | HOSPPROG ---
Hospitalist Progress Note Assessment/Plan: Assessment: 66-year-old male presents with acute headache and suspected viral meningitis Plan: 1. Suspected viral meningitis. Acute, evidenced by CSF demonstrating pleocytosis with a neutrophil predominance, in the setting of headache, cognitive fatigue, systemic viral syndrome -d/w Dr. Crabtree, suspected enterovirus, serologies sent, pending -ongoing fever, repeat BCx to ensure no other bacterial cause -remains very symptomatic w/ severe headache, responding to and receiving IV morphine, toradol, rec adding benadryl now -cont IVF w/ K -remains very immobile 2/2 discomfort, recommended PT and repositioning to prevent severe deconditioning -will get ESR to eval whether it is at a critical level where TA needs to be considered as part of differential 2. Hypertension. Chronic, continue home medication Diet. Regular as tolerated Prophylaxis. Moderate risk patient, Lovenox 40 Code. Full Disposition. Anticipated discharge is uncertain, too symptomatic/weak to safely discharge home Subjective: patient with ongoing weakness and headache, counseled patient/ extensively regarding dx, supportive tx, and need to mobilize when able Objective: Vital Signs Temp Pulse Resp BP Pulse Ox 36.9 C 66 18 158/78 H 96 02/16/17 14:45 02/16/17 14:45 02/16/17 14:45 02/16/17 14:45 02/16/17 14:45 Microbiology 02/15/17 18:10 Respiratory Panel (PCR) - Final Nasal, Sinus - [place] Viral Transport No Organism Detected Laboratory Results 02/16/17 05:31 02/16/17 05:31 02/15/17 02/16/17 02/17/17 05:59 05:59 05:59 Intake Total 3050 Output Total 525 Balance 2525 PT 14.5 SEC (12.0-15.0) 02/15/17 08:55 INR 1.14 (0.83-1.16) 02/15/17 08:55 - Time Spent With Patient Time Spent with Patient: greater than 35 minutes Time Spent with Patient: Greater than 35 minutes spent on this patients care, greater than 50% of time spent counseling, educating, and coordinating care regarding the above mentioned plan. - Physical Exam Constitutional: no apparent distress, appears nourished, uncomfortable, No not in pain (moderate headache) Eyes: PERRL, anicteric sclera, EOMI Cardiovascular: regular rate and rhythym, no murmur, rub, or gallop Respiratory: no respiratory distress, no rales or rhonchi, clear to auscultation Gastrointestinal: normoactive bowel sounds, soft, non-tender abdomen, no palpable masses Neurologic: AAOx3, sensation intact bilaterally, CN II-XII Intact, No weakness Psychiatric: not anxious, flat affect, other (lethargic but arousable), No agitated ICD10 Worksheet Patient Problems: Problems Problem Status Onset Headache Acute Meningitis Acute
--- NOTE | 2017-02-16 15:49 | PCMIDPN ---
Assessment/Plan: Assessment/Plan: * Meningitis: Clinically with persistent headache and fever this afternoon which is not unexpected as part of typical clinical course. Most likely etiology will be viral with considerations including enterovirus, West Nile virus, HSV, and VZV. Remains without findings of encephalitis. Continue supportive care with pain control and IV hydration. Await serologic data which is currently pending. Will hold off on addition of acyclovir given absence of encephalitis. Discussed with patient and clinical findings and continued likelihood that etiology will be viral in nature. Blood and CSF cultures remain negative. 02/16/17 15:46 Subjective: Patient with fever to 39.1 and headache this afternoon. Appetite remains poor. No confusion. Objective: Vital Signs Temp Pulse Resp BP Pulse Ox 36.9 C 66 18 158/78 H 96 02/16/17 14:45 02/16/17 14:45 02/16/17 14:45 02/16/17 14:45 02/16/17 14:45 Microbiology 02/15/17 18:10 Respiratory Panel (PCR) - Final Nasal, Sinus - [place] Viral Transport No Organism Detected Laboratory Results 02/16/17 05:31 02/16/17 05:31 02/15/17 02/16/17 02/17/17 05:59 05:59 05:59 Intake Total 3050 Output Total 525 Balance 2525 ESR 7 MM/HR (0-20) 02/16/17 05:31 C-Reactive Protein 6.7 mg/L (<10.0) 02/16/17 05:31 No antibiotics CSF and blood cultures no growth to date CSF HSV/VZV/West Nile virus/enterovirus pending Serum West Nile virus antibody from 02/13/2017 pending - Physical Exam General Appearance: alert, apparent distress (Uncomfortable due to fever and headache), non-toxic EENT: No scleral icterus, No thrush, No conjunctival petechiae Respiratory: lungs clear, No respiratory distress Neck: No meningismus Cardiac/Chest: regular rate, rhythm, No systolic murmur Extremities: No inflammation Abdomen: non-tender, No distended Skin: No rash Neuro/Psych: alert, No confused ICD10 Worksheet Patient Problems: Problems Problem Status Onset Headache Acute Meningitis Acute
[2017-02-16] MEDS ORDERED: MEPERIDINE 25 MG/ML SYR IVP ONE (18:07)
[2017-02-16] MEDS: NS W/ 20 KCl/L 1,000 ML IV SCH (18:34)
[2017-02-16] MEDS: amLODIPine BESYLATE 5 MG TAB PO SCH (21:51)
[2017-02-16] MEDS: ATORVASTATIN CALCIUM 20 MG TAB PO SCH (21:51)
[2017-02-17] MEDS: ACETAMINOPHEN 500 MG TAB PO PRN ×3 (02:07→16:06)
[2017-02-17] MEDS: PROMETHAZINE HCL 25 MG/ML INJ IVP PRN ×3 (02:16→18:39)
[2017-02-17 05:14] LABS: % IMMATURE GRANULYOCYTES 0.7 % (0.0-1.1); ABSOLUTE IMMATURE GRANULOCYTES 0.06 10^3/uL (0.00-0.10); ADD DIFF? NO; ADD MORPH? NO; ADD SCAN? NO; ATYPICAL LYMPHOCYTE FLAG 20 (0-99); FRAGMENT RBC FLAG 0 (0-99); HEMATOCRIT 37.4 % (40.0-51.0); LEFT SHIFT FLG 0 (0-99); LIPEMIA HEMOLYSIS FLAG 90 (0-99); MEAN CELL HEMOGLOBIN 30.4 pg (27.9-34.1); MEAN CELL HEMOGLOBIN CONCENTR. 34.8 g/dL (32.4-36.7); MEAN CELL VOLUME 87.4 fL (81.5-99.8); MEAN PLATELET VOLUME 9.4 fL (8.7-11.7); PLATELET CLUMPS FLAG 0 (0-99); PLATELET COUNT 229 10^3/uL (150-400); RED BLOOD CELL COUNT 4.28 10^6/uL (4.40-6.38); RED CELL DISTRIBUTION WIDTH 12.4 % (11.5-15.2)
[2017-02-17 05:33] LABS: ALANINE AMINOTRANSFERASE 32 IU/L (21-72); ALKALINE PHOSPHATASE 55 IU/L (38-126); ANION GAP 8 mEq/L (8-16); ASPARTATE AMINOTRANSFERASE 20 IU/L (17-59); BILIRUBIN,TOTAL 1.1 mg/dL (0.1-1.4); CALCIUM 8.4 mg/dL (8.5-10.4); CARBON DIOXIDE 24 mEq/l (22-31); CHLORIDE 104 mEq/L (97-110); CREATININE 0.9 mg/dL (0.7-1.3); GLOMERULAR FILTRATION RATE > 60; GLUCOSE 103 mg/dL (70-100); POTASSIUM 3.8 mEq/L (3.5-5.2); SODIUM 136 mEq/L (134-144); TOTAL PROTEIN 5.7 g/dL (6.3-8.2)
[2017-02-17] MEDS: KETOROLAC 15 MG/1 ML SDV IVP PRN ×3 (05:43→18:39)
[2017-02-17] MEDS: NS W/ 20 KCl/L 1,000 ML IV SCH ×2 (05:51→18:40)
[2017-02-17] MEDS: ENOXAPARIN 40 MG/0.4 ML SYR SC SCH (09:01)
--- NOTE | 2017-02-17 10:41 | PCMIDPN ---
Assessment/Plan: Assessment/Plan: * Meningitis: Continued headache with decreased temperature today. Continue to suspect viral etiology with West Nile virus, enterovirus, HSV, or VZV all remaining considerations. Spoke with [facility] with possible results of serum West Nile virus antibodies from 02/13/2017 available by end of day. Left my phone number for them to call me with results. Continue with supportive care including pain control and IV hydration. Blood cultures and CSF cultures remain negative making bacterial etiology unlikely. Continue to observe off antibiotics. Time spent, greater than 35 minutes, of which greater than half was spent in education/counseling/coordination of care related to meningitis, diagnostic considerations, and plan of care. 02/17/17 10:38 Subjective: Patient with persistent headache. No episodes of confusion. Poor appetite persists. Objective: Vital Signs Temp Pulse Resp BP Pulse Ox 37.2 C 72 16 113/63 94 02/17/17 07:56 02/17/17 07:56 02/17/17 07:56 02/17/17 07:56 02/17/17 07:56 Laboratory Results 02/17/17 04:55 02/17/17 04:55 02/16/17 02/17/17 02/18/17 05:59 05:59 05:59 Intake Total 3050 2150 Output Total 525 650 Balance 2525 1500 ESR 7 MM/HR (0-20) 02/16/17 05:31 C-Reactive Protein 6.7 mg/L (<10.0) 02/16/17 05:31 No antibiotic therapy Blood cultures x2 no growth CSF culture no growth Serum West Nile virus antibody pending CSF West Nile virus antibody, enterovirus PCR, HSV PCR, and VZV PCR all pending - Physical Exam General Appearance: alert, apparent distress (Fatigued appearance), non-toxic EENT: PERRL/EOMI, pharynx normal, No conjunctival petechiae Respiratory: lungs clear, No respiratory distress Neck: No meningismus Cardiac/Chest: regular rate, rhythm, No systolic murmur Extremities: No inflammation Abdomen: non-tender, No distended Skin: No rash, No embolic lesions Neuro/Psych: alert, oriented x 3, other (Able to follow commands and do simple math without difficulty) ICD10 Worksheet Patient Problems: Problems Problem Status Onset Headache Acute Meningitis Acute
--- NOTE | 2017-02-17 10:54 | HOSPPROG ---
Hospitalist Progress Note Assessment/Plan: 66 yo with suspected viral meningitis. New to me as of 02/17 1. Suspected viral meningitis. Acute, evidenced by CSF demonstrating pleocytosis with a neutrophil predominance, in the setting of headache, cognitive fatigue, systemic viral syndrome -ID following, suspected enterovirus vs other virus, serologies sent, pending as of 10 a.m 02/17 -ongoing fever, repeat BCx to ensure no other bacterial cause: No fever today. Awaiting cultures -Not on Acyclovir per ID as no Encephalopathy -remains very symptomatic w/ severe headache, responding to and receiving IV morphine and antiemetics -cont IVF w/ K -remains very immobile 2/2 discomfort, recommended PT and repositioning to prevent severe deconditioning 2. Hypertension. Chronic, continue home medication 3. HLD: cont statin Diet. Regular as tolerated Prophylaxis. Moderate risk patient, Lovenox 40 Code. Full Disposition. Anticipated discharge is uncertain, too symptomatic/weak to safely discharge home Plan: -Decrease IVF to 75mg/hr. Encourage PO. NO signs of volume overload at this time -Cont PT, refused yesterday as was too uncomfortable. Encouraged today -Await cultures/studies Subjective: Still very symtomatic. HORVATH, weakness, fatigue. Denies CP or SOB. No Hand or Leg swelling. Objective: Vital Signs Temp Pulse Resp BP Pulse Ox 37.2 C 72 16 113/63 94 02/17/17 07:56 02/17/17 07:56 02/17/17 07:56 02/17/17 07:56 02/17/17 07:56 Laboratory Results 02/17/17 04:55 02/17/17 04:55 02/16/17 02/17/17 02/18/17 05:59 05:59 05:59 Intake Total 3050 2150 Output Total 525 650 Balance 2525 1500 PT 14.5 SEC (12.0-15.0) 02/15/17 08:55 INR 1.14 (0.83-1.16) 02/15/17 08:55 - Physical Exam Constitutional: no apparent distress, appears nourished, not in pain Eyes: PERRL, EOMI Ears, Nose, Mouth, Throat: moist mucous membranes Cardiovascular: regular rate and rhythym, No JVD, No edema Respiratory: no respiratory distress, no rales or rhonchi, clear to auscultation Gastrointestinal: soft, non-tender abdomen Skin: warm Neurologic: AAOx3 Psychiatric: interacting appropriately, not anxious, not encephalopathic ICD10 Worksheet Patient Problems: Problems Problem Status Onset Headache Acute Meningitis Acute
[2017-02-17 13:41] LABS: HSV 1 PCR, CSF Negative (Negative); HSV 2 PCR, CSF Negative (Negative)
[2017-02-17] MEDS: amLODIPine BESYLATE 5 MG TAB PO SCH (21:16)
[2017-02-17] MEDS: ATORVASTATIN CALCIUM 20 MG TAB PO SCH (21:16)
[2017-02-18 00:55] LABS: ENTEROVIRUS BY PCR Negative (Negative); SPECIMEN SOURCE ENTEROVIRUS CSF
[2017-02-18 00:55] LABS: SPECIMEN SOURCE CSF; VARICELLA ZOSTER NEGATIVE (Negative)
[2017-02-18] MEDS: NS W/ 20 KCl/L 1,000 ML IV SCH ×2 (04:51→17:54)
[2017-02-18 05:06] LABS: % IMMATURE GRANULYOCYTES 0.3 % (0.0-1.1); ABSOLUTE IMMATURE GRANULOCYTES 0.02 10^3/uL (0.00-0.10); ADD DIFF? NO; ADD MORPH? NO; ADD SCAN? NO; ATYPICAL LYMPHOCYTE FLAG 40 (0-99); FRAGMENT RBC FLAG 0 (0-99); HEMATOCRIT 34.9 % (40.0-51.0); HEMOGLOBIN 12.1 g/dL (13.7-17.5); LEFT SHIFT FLG 0 (0-99); LIPEMIA HEMOLYSIS FLAG 90 (0-99); MEAN CELL HEMOGLOBIN 30.2 pg (27.9-34.1); MEAN CELL HEMOGLOBIN CONCENTR. 34.7 g/dL (32.4-36.7); MEAN PLATELET VOLUME 9.2 fL (8.7-11.7); PLATELET CLUMPS FLAG 0 (0-99); PLATELET COUNT 225 10^3/uL (150-400); RED BLOOD CELL COUNT 4.01 10^6/uL (4.40-6.38); RED CELL DISTRIBUTION WIDTH 12.3 % (11.5-15.2)
[2017-02-18] MEDS: PROMETHAZINE HCL 25 MG/ML INJ IVP PRN ×3 (05:14→16:25)
[2017-02-18] MEDS: ACETAMINOPHEN 500 MG TAB PO PRN ×2 (08:48→17:46)
[2017-02-18] MEDS: ENOXAPARIN 40 MG/0.4 ML SYR SC SCH (08:54)
--- NOTE | 2017-02-18 09:38 | PCMIDPN ---
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 Persistent headache and profound malaise. Question if subtle cogwheeling present in right upper extremity. No significant rigidity however. Continue supportive care with IV fluids and pain control. Will check serum IgG level to ensure no evidence of hypogammaglobulinemia although no history of recurrent infections previously. Clinical findings and plan discussed with patient and . 02/18/17 09:34 Subjective: Patient complains of headache. Temperature has been down last 24 hours. Poor oral intake. Objective: Vital Signs Temp Pulse Resp BP Pulse Ox 37.4 C 88 19 128/84 H 3 L 02/18/17 08:10 02/18/17 08:10 02/18/17 08:10 02/18/17 08:10 02/18/17 08:10 Laboratory Results 02/18/17 04:47 02/17/17 04:55 02/17/17 02/18/17 02/19/17 05:59 05:59 05:59 Intake Total 2150 1818 900 Output Total 650 751 500 Balance 1500 1067 400 ESR 7 MM/HR (0-20) 02/16/17 05:31 C-Reactive Protein 6.7 mg/L (<10.0) 02/16/17 05:31 No antibiotics Serum West Nile virus IgM positive, IgG negative (02/13/2017 drawn at time of ED visit) CSF West Nile virus antibodies pending CSF HSV/VZV/enterovirus PCR negative Blood and CSF cultures no growth - Physical Exam General Appearance: apparent distress (Pain related to headache), non-toxic EENT: No scleral icterus, No thrush Respiratory: lungs clear, No respiratory distress Cardiac/Chest: regular rate, rhythm Extremities: No inflammation Abdomen: non-tender, No distended Skin: No rash Neuro/Psych: oriented x 3, other (Question subtle cogwheeling of right upper extremity without denise rigidity), No confused ICD10 Worksheet Patient Problems: Problems Problem Status Onset Headache Acute Meningitis Acute
--- NOTE | 2017-02-18 10:51 | HOSPPROG ---
Hospitalist Progress Note Assessment/Plan: 66 yo with viral meningitis likely due to West Nile (IgM +, IgG- on 02/18). Still very symptomatic with decreased oral intake and generalized weakness. 1. Suspected viral meningitis. Acute, evidenced by CSF demonstrating pleocytosis with a neutrophil predominance, in the setting of headache, cognitive fatigue, systemic viral syndrome. Likely due to West Nile per test results obtained 02/18 -ID following --> supportive care -Not on Acyclovir per ID as no Encephalopathy -remains very symptomatic w/ severe headache, responding to and receiving IV morphine and antiemetics -cont IVF w/ K, although will decrease slightly today -working with PT but due to sx's this has been limited. Encouraged PT 2. Hypertension. Chronic, continue home medication 3. HLD: cont statin Diet. Regular as tolerated Prophylaxis. Moderate risk patient, Lovenox 40 Code. Full Disposition. Anticipated discharge is uncertain, too symptomatic/weak to safely discharge home. Supportive Care. IVF as need, decreasing today. PT. May need Rehab. D/W nurse who will d/w CM. will also order OT. D/W ID Subjective: Still with HORVATH, still very weak, Afebrile. Limited work with PT. Denies UE/LE swelling or edema. PO intake a little better overnight. Objective: Vital Signs Temp Pulse Resp BP Pulse Ox 37.4 C 88 19 128/84 H 3 L 02/18/17 08:10 02/18/17 08:10 02/18/17 08:10 02/18/17 08:10 02/18/17 08:10 Laboratory Results 02/18/17 04:47 02/17/17 04:55 02/17/17 02/18/17 02/19/17 05:59 05:59 05:59 Intake Total 2150 1818 900 Output Total 650 751 500 Balance 1500 1067 400 PT 14.5 SEC (12.0-15.0) 02/15/17 08:55 INR 1.14 (0.83-1.16) 02/15/17 08:55 - Physical Exam Constitutional: no apparent distress, appears nourished, not in pain Eyes: PERRL, EOMI Ears, Nose, Mouth, Throat: moist mucous membranes, hearing normal Cardiovascular: regular rate and rhythym, no murmur, rub, or gallop, No JVD, No bradycardia, No edema Respiratory: no respiratory distress, no rales or rhonchi, clear to auscultation Gastrointestinal: normoactive bowel sounds, soft, non-tender abdomen, No tenderness Skin: warm Musculoskeletal: generalized weakness Neurologic: AAOx3 Psychiatric: interacting appropriately, not anxious, not encephalopathic, thought process linear ICD10 Worksheet Patient Problems: Problems Problem Status Onset Headache Acute Meningitis Acute
[2017-02-18] MEDS ORDERED: BISACODYL 10 MG SUPP PR PRN (11:07)
[2017-02-18] MEDS: POLYETHYLENE GLYCOL 3350 17 GM PKT PO SCH (16:37)
[2017-02-18] MEDS: KETOROLAC 15 MG/1 ML SDV IVP PRN (18:06)
[2017-02-18] MEDS: ATORVASTATIN CALCIUM 20 MG TAB PO SCH (20:27)
[2017-02-18] MEDS: amLODIPine BESYLATE 5 MG TAB PO SCH (20:27)
[2017-02-19] MEDS: KETOROLAC 15 MG/1 ML SDV IVP PRN ×3 (00:06→16:07)
[2017-02-19 05:42] LABS: ALANINE AMINOTRANSFERASE 30 IU/L (21-72); ALBUMIN 2.8 g/dL (3.5-5.0); ALKALINE PHOSPHATASE 50 IU/L (38-126); ANION GAP 9 mEq/L (8-16); ASPARTATE AMINOTRANSFERASE 18 IU/L (17-59); BILIRUBIN,TOTAL 1.1 mg/dL (0.1-1.4); CALCIUM 8.4 mg/dL (8.5-10.4); CARBON DIOXIDE 25 mEq/l (22-31); CHLORIDE 103 mEq/L (97-110); CREATININE 0.8 mg/dL (0.7-1.3); GLOMERULAR FILTRATION RATE > 60; GLUCOSE 91 mg/dL (70-100); POTASSIUM 3.9 mEq/L (3.5-5.2); SODIUM 137 mEq/L (134-144); TOTAL PROTEIN 5.2 g/dL (6.3-8.2)
[2017-02-19] MEDS: NS W/ 20 KCl/L 1,000 ML IV SCH (08:51)
[2017-02-19] MEDS: ENOXAPARIN 40 MG/0.4 ML SYR SC SCH (08:54)
[2017-02-19] MEDS: PROMETHAZINE HCL 25 MG/ML INJ IVP PRN (09:08)
[2017-02-19] MEDS: POLYETHYLENE GLYCOL 3350 17 GM PKT PO SCH (09:11)
[2017-02-19] MEDS: ONDANSETRON 4 MG/2 ML VIAL IVP PRN ×2 (10:55→19:43)
--- NOTE | 2017-02-19 12:10 | HOSPPROG ---
Hospitalist Progress Note Assessment/Plan: 66 yo with viral meningitis likely due to West Nile (IgM +, IgG- on 02/18). Still very symptomatic with decreased oral intake and generalized weakness. Starting to feel better. Has been refusing PT 1. viral meningitis due to West Nile -ID following --> supportive care -Not on Acyclovir per ID as no Encephalopathy -remains very symptomatic w/ severe headache, responding to and receiving IV morphine and antiemetics -cont IVF w/ K, although will decrease slightly today. Decrease to 50ml/hr -working with PT but due to sx's this has been limited. Encouraged PT 2. Hypertension. Chronic, continue home medication 3. HLD: cont statin Diet. Regular as tolerated Prophylaxis. Moderate risk patient, Lovenox 40 Code. Full Disposition. Keep inpatient. too symptomatic/weak to safely discharge home. Cont suupportive care. Cont IVF, but will decrease today. Cont PT. May need Rehab. This was d/w CM today Subjective: Starting to feed better. No HORVATH. Still with decreased oral intake, but improving. Afebrile. Still weak. Objective: Vital Signs Temp Pulse Resp BP Pulse Ox 37.1 C 87 14 122/74 H 92 02/19/17 11:18 02/19/17 11:18 02/19/17 11:18 02/19/17 11:18 02/19/17 11:18 Laboratory Results 02/18/17 04:47 02/19/17 05:05 02/18/17 02/19/17 02/20/17 05:59 05:59 05:59 Intake Total 1818 2667 Output Total 751 3805 900 Balance 1067 192 -900 PT 14.5 SEC (12.0-15.0) 02/15/17 08:55 INR 1.14 (0.83-1.16) 02/15/17 08:55 - Physical Exam Constitutional: no apparent distress, appears nourished, not in pain Eyes: PERRL, EOMI Ears, Nose, Mouth, Throat: moist mucous membranes, hearing normal Cardiovascular: regular rate and rhythym, no murmur, rub, or gallop, No edema Respiratory: no respiratory distress, no rales or rhonchi, clear to auscultation Gastrointestinal: normoactive bowel sounds, soft, non-tender abdomen, no palpable masses Skin: warm Musculoskeletal: generalized weakness Neurologic: AAOx3 Psychiatric: interacting appropriately, not anxious, not encephalopathic ICD10 Worksheet Patient Problems: Problems Problem Status Onset Headache Acute Meningitis Acute
--- NOTE | 2017-02-19 13:48 | PCMIDPN ---
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 Continue supportive care. Long discussion about pathogenesis of WNV and expected clinical course. IgG level normal, no clear underlying immune compromise. Subjective: patient does not want to go to rehab, hopes to go straight home Objective: Vital Signs Temp Pulse Resp BP Pulse Ox 37.1 C 87 14 122/74 H 92 02/19/17 11:18 02/19/17 11:18 02/19/17 11:18 02/19/17 11:18 02/19/17 11:18 Laboratory Results 02/18/17 04:47 02/19/17 05:05 02/18/17 02/19/17 02/20/17 05:59 05:59 05:59 Intake Total 1818 2667 Output Total 751 2475 900 Balance 1067 192 -900 ESR 7 MM/HR (0-20) 02/16/17 05:31 C-Reactive Protein 6.7 mg/L (<10.0) 02/16/17 05:31 Laboratory Tests 02/13/17 13:10 West Nile Virus IgG Ab Negative West Nile Virus IgM Ab Positive H West Nile Interp See Comments - Physical Exam General Appearance: alert, no apparent distress EENT: pale conjunctiva, No scleral icterus Respiratory: lungs clear, No accessory muscle use Cardiac/Chest: regular rate, rhythm Abdomen: non-tender, soft Skin: No rash Neuro/Psych: alert, oriented x 3, depressed affect, other (UE tremulous B), No no motor/sensory deficits - Time Spent With Patient Time Spent with Patient: greater than 35 minutes (reviewed pathogenesis of WNV) Time Spent with Patient: Greater than 35 minutes spent on this patients care, greater than 50% of time spent counseling, educating, and coordinating care regarding the above mentioned plan. ICD10 Worksheet Patient Problems: Problems Problem Status Onset Headache Acute Meningitis Acute
[2017-02-19] MEDS: ACETAMINOPHEN 500 MG TAB PO PRN (19:43)
[2017-02-19] MEDS: amLODIPine BESYLATE 5 MG TAB PO SCH (21:22)
[2017-02-19] MEDS: ATORVASTATIN CALCIUM 20 MG TAB PO SCH (21:22)
[2017-02-20] MEDS: NS W/ 20 KCl/L 1,000 ML IV SCH (00:16)
[2017-02-20] MEDS: KETOROLAC 15 MG/1 ML SDV IVP PRN ×2 (06:35→16:44)
[2017-02-20] MEDS: ENOXAPARIN 40 MG/0.4 ML SYR SC SCH (09:26)
[2017-02-20] MEDS: POLYETHYLENE GLYCOL 3350 17 GM PKT PO SCH (09:26)
--- NOTE | 2017-02-20 12:45 | PCMIDPN ---
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 Continue supportive care. No evidence of underlying immune compromise. --will follow peripherally --discharge based on opinion from physical therapy . --stressed the importance of physical therapy Subjective: Feeling better today. Sat up in a chair for 3 hours today. Objective: Vital Signs Temp Pulse Resp BP Pulse Ox 36.8 C 70 16 133/90 H 94 02/20/17 11:51 02/20/17 11:51 02/20/17 11:51 02/20/17 11:51 02/20/17 11:51 Laboratory Results 02/18/17 04:47 02/19/17 05:05 02/19/17 02/20/17 02/21/17 05:59 05:59 05:59 Intake Total 2665 1870 Output Total 3564 2600 1100 Balance 192 -730 -1100 ESR 7 MM/HR (0-20) 02/16/17 05:31 C-Reactive Protein 6.7 mg/L (<10.0) 02/16/17 05:31 - Physical Exam General Appearance: alert, no apparent distress EENT: pale conjunctiva, No scleral icterus Respiratory: No accessory muscle use Extremities: other (Persistent upper extremity tremulousness) Skin: No rash Neuro/Psych: alert, oriented x 3, depressed affect ICD10 Worksheet Patient Problems: Problems Problem Status Onset Headache Acute Meningitis Acute
--- NOTE | 2017-02-20 16:17 | HOSPPROG ---
Hospitalist Progress Note Assessment/Plan: * West Nile encephalitis -cognition worsening per , now with UE tremor -continue supportive care -in addition to PT, consult OT and ST for cognition * Very poor PO intake -encourage PO -calorie count * HTN -continue home meds * Hyperlipidemia -statin Subjective: According to , cognition is worsening. Now with new UE tremor Objective: Vital Signs Temp Pulse Resp BP Pulse Ox 36.8 C 70 16 133/90 H 94 02/20/17 11:51 02/20/17 11:51 02/20/17 11:51 02/20/17 11:51 02/20/17 11:51 Laboratory Results 02/18/17 04:47 02/19/17 05:05 02/19/17 02/20/17 02/21/17 05:59 05:59 05:59 Intake Total 2667 1870 Output Total 2475 2600 1100 Balance 192 -730 -1100 PT 14.5 SEC (12.0-15.0) 02/15/17 08:55 INR 1.14 (0.83-1.16) 02/15/17 08:[address] - no change discussed with Dr. Garcia - [facility] when rehab needs clear - Physical Exam Constitutional: no apparent distress, appears nourished, not in pain Cardiovascular: regular rate and rhythym, no murmur, rub, or gallop Respiratory: no respiratory distress, no rales or rhonchi, clear to auscultation Gastrointestinal: normoactive bowel sounds, soft, non-tender abdomen, no palpable masses Skin: no rashes or abrasions, no fluctuance, no induration Neurologic: AAOx3, sensation intact bilaterally Psychiatric: interacting appropriately, encephalopathic, flat affect, other ( very flat but answers appropriately when questioned), No agitated ICD10 Worksheet Patient Problems: Problems Problem Status Onset Headache Acute Meningitis Acute
[2017-02-20] MEDS: ACETAMINOPHEN 500 MG TAB PO PRN (20:36)
[2017-02-20] MEDS: ONDANSETRON 4 MG/2 ML VIAL IVP PRN (20:37)
[2017-02-20] MEDS: amLODIPine BESYLATE 5 MG TAB PO SCH (21:50)
[2017-02-20] MEDS: ATORVASTATIN CALCIUM 20 MG TAB PO SCH (21:50)
[2017-02-21] MEDS: ONDANSETRON 4 MG/2 ML VIAL IVP PRN ×2 (00:31→05:28)
[2017-02-21] MEDS: ACETAMINOPHEN 500 MG TAB PO PRN ×2 (02:59→20:22)
[2017-02-21 04:25] LABS: % IMMATURE GRANULYOCYTES 0.2 % (0.0-1.1); ABSOLUTE IMMATURE GRANULOCYTES 0.01 10^3/uL (0.00-0.10); ADD DIFF? NO; ADD MORPH? NO; ADD SCAN? NO; ATYPICAL LYMPHOCYTE FLAG 40 (0-99); FRAGMENT RBC FLAG 0 (0-99); HEMATOCRIT 36.7 % (40.0-51.0); HEMOGLOBIN 12.8 g/dL (13.7-17.5); LEFT SHIFT FLG 0 (0-99); LIPEMIA HEMOLYSIS FLAG 90 (0-99); MEAN CELL HEMOGLOBIN CONCENTR. 34.9 g/dL (32.4-36.7); MEAN CELL VOLUME 85.9 fL (81.5-99.8); MEAN PLATELET VOLUME 9.2 fL (8.7-11.7); PLATELET CLUMPS FLAG 0 (0-99); PLATELET COUNT 280 10^3/uL (150-400); RED BLOOD CELL COUNT 4.27 10^6/uL (4.40-6.38); RED CELL DISTRIBUTION WIDTH 12.4 % (11.5-15.2)
[2017-02-21 04:42] LABS: ANION GAP 10 mEq/L (8-16); CALCIUM 8.9 mg/dL (8.5-10.4); CARBON DIOXIDE 27 mEq/l (22-31); CHLORIDE 102 mEq/L (97-110); CREATININE 0.9 mg/dL (0.7-1.3); GLOMERULAR FILTRATION RATE > 60; GLUCOSE 102 mg/dL (70-100); SODIUM 139 mEq/L (134-144)
[2017-02-21] MEDS: ENOXAPARIN 40 MG/0.4 ML SYR SC SCH (10:45)
[2017-02-21] MEDS: POLYETHYLENE GLYCOL 3350 17 GM PKT PO SCH (10:45)
--- NOTE | 2017-02-21 13:07 | GCON ---
[f rep st] CONSULTATION NEUROLOGY CONSULTATION REFERRING PHYSICIAN: Aubrie Meneses MD CHIEF COMPLAINT: West Nile virus meningoencephalitis. HISTORY OF PRESENT ILLNESS: The patient is a very pleasant 66-year-old gentleman, who is mostly retired from [employer]. He was in [place] by a reservoir for a period of time in January, and had mosquito exposure there and at home. At the end of January, around February 02, he began having some vague fatigue, and nausea type symptoms, which progressed into a more fulminant viral syndrome by February 13. He ultimately was admitted to the hospital, and found to have abnormal CSF, with a white blood cell count of 58 to 84, based on the tube number with a neutrophilic predominance. His serology was consistent with acute West Nile virus infection. Head CTs have been negative. He has had a slow course of improvement with some ups and downs related to how much he has ate or drank. Yesterday, he did not eat or drink almost anything, and felt fatigued and shaky. Today, he is back to baseline, feeling better that he has eaten. He has had no seizures. REVIEW OF SYSTEMS: A 10-point review of system was performed and only pertinent to the HPI. Past medical history, social history, family history, home medications, allergies, please see Dr. Hopkins's history and physical from February 15, 2017. PHYSICAL EXAM: VITAL SIGNS: Blood pressure is 118/72, he is afebrile at 36.4, satting at 94%, heart rate 67. GENERAL: In no acute distress. Very pleasant. NEUROLOGIC: Higher mental function: He names 5/5. Follows commands 5/5, repeats 5/5. No aphasia. He is fairly lucid and oriented. Cranial nerve exam : Normal 2 through 7. Motor exam: Normal strength, tone and reflexes throughout. Sensory exam normal to light touch throughout. Coordination: Normal in upper and lower extremities. The patient walked around the unit this morning. seventy total minutes floor time today, this included reviewing extensive hospital medicine, infectious disease records, along with laboratories and imaging. That also included direct counseling with the patient and coordination of care. IMPRESSION/PLAN: 1. West Nile virus meningoencephalitis. I had a long discussion with the patient and his regarding encephalitis, recovery and prognosis. There is no specific antiviral treatment indicated. It is essentially supportive care. He fortunately does not have any signs or symptoms of flaccid paralysis (another neurologic syndrome that occurs due to West Nile virus). He has normal strength and reflexes throughout. I counseled him that he will have some degree of recovery from his encephalitis , in terms of the cognitive slowing they have noticed. I recommend he have some cognitive therapy either as an inpatient or outpatient. I will defer to my colleagues in speech language therapy on what they recommend. He likely would do well as an outpatient getting cognitive therapy. No further recommendations now. All of the above is discussed at great length with the family. We will sign off and follow up as needed. We change services tomorrow. Please do not hesitate to reconsult the neurology service, if there are any further questions or changes in neurologic status. Lastly, I have counseled the patient and his , if he develops any paroxysmal spells suspicious of seizures, they are to contact my office as soon as possible to set up an outpatient neurology followup. /[id number]/MODL MTDD
--- NOTE | 2017-02-21 14:45 | HOSPPROG ---
Hospitalist Progress Note Assessment/Plan: * West Nile meningo-encephalitis -continue supportive care - much better today -scored 22/30 on cognitive testing - continue OP ST -if continues to improve - home with HH in am -seizure risk - watch clinically * Hypoxia -suspect atelectasis - start IS -if persistent consider w/u for PE - check Ddimer * HTN -continue norvasc * Hyperlipidemia -statin Subjective: Much better today. Stronger. Conversing normally. Upper extremity tremor reduced. Objective: Vital Signs Temp Pulse Resp BP Pulse Ox 36.8 C 87 18 141/84 H 91 L 02/21/17 13:34 02/21/17 13:34 02/21/17 13:34 02/21/17 13:34 02/21/17 13:34 Laboratory Results 02/21/17 04:09 02/21/17 04:09 02/20/17 02/21/17 02/22/17 05:59 05:59 05:59 Intake Total 1870 350 Output Total 2600 1100 Balance -730 -750 PT 14.5 SEC (12.0-15.0) 02/15/17 08:55 INR 1.14 (0.83-1.16) 02/15/17 08:55 Case d/w Dr. Barreto - no other options other than supportive care. watch for seizures. CXR - poor inspiration, no PNA - Physical Exam Constitutional: no apparent distress, appears nourished, not in pain Cardiovascular: regular rate and rhythym, no murmur, rub, or gallop Respiratory: no respiratory distress, no rales or rhonchi, clear to auscultation Gastrointestinal: normoactive bowel sounds, soft, non-tender abdomen, no palpable masses Skin: no rashes or abrasions, no fluctuance, no induration Neurologic: AAOx3, sensation intact bilaterally Psychiatric: interacting appropriately, not anxious, not encephalopathic, thought process linear ICD10 Worksheet Patient Problems: Problems Problem Status Onset Headache Acute Meningitis Acute
[2017-02-21] MEDS: ATORVASTATIN CALCIUM 20 MG TAB PO SCH (20:22)
[2017-02-21] MEDS: amLODIPine BESYLATE 5 MG TAB PO SCH (20:22)
[2017-02-22 04:29] VITALS: RESP 16
[2017-02-22] MEDS: ENOXAPARIN 40 MG/0.4 ML SYR SC SCH (07:50)
[2017-02-22] MEDS: POLYETHYLENE GLYCOL 3350 17 GM PKT PO SCH (08:52)
[2017-02-22] MEDS ORDERED: IOPAMIDOL (ISOVUE 370) 100 ML BTL IV ONE (09:55)
[2017-02-22 14:02] VITALS: BP 122/75; PULSE 98; TEMP 98.2; O2SAT 91
--- NOTE | 2017-02-22 14:25 | PDIAF ---
- Diagnosis Diagnosis: West Nile Virus Code Status: Full Code - Medication Management Discharge Medications: Medications to Continue on Transfer amLODIPine BESYLATE [Norvasc 5 mg (*)] 5 mg PO HS 02/13/17 [Last Taken 02/14/17] Acyclovir 400 mg PO DAILY PRN 02/15/17 [Last Taken Unknown] Atorvastatin Calcium [Lipitor 20 mg (*)] 20 mg PO HS 02/15/17 [Last Taken ] Herbals/Supplements -Info Only 1 ea PO DAILY 02/15/17 [Last Taken Unknown] Acetaminophen [Tylenol ES 500 mg (*)] 500 - 1,000 mg PO Q6HRS PRN #0 tab [Last Taken Unknown] Ondansetron Odt [Zofran Odt 4 mg (*)] 4 - 8 mg PO Q4HRS PRN #40 tab 02/22/17 [ Last Taken Unknown] Halfway Antibiotics: NA Discharge Medications: Refer to the Discharge Home Medication list for PRN reason. PICC Care - Routine: N/A - Orders Services needed: Home Care, Registered Nurse, Physical Therapy, Occupational Therapy, Speech Language Pathologist (Cognitive/Language therapy) Home Care Face to Face: I certify that this patient was under my care and that I had the required [id number] encounter meeting the encounter requirements on the discharge day. My findings support the fact that the patient is homebound as defined in CMS Chapter 7 Medicare Benefits Manual 30.1.1, The condition of the patient is such that there exists a normal inability to leave home and consequently, leaving home would require a considerable and taxing effort. Oxygen: NA Diet Recommendation: no restrictions on diet Barth: Not applicable Activity/Weight Bearing Restrictions: as tolerates - Follow Up Care Current Providers and Referrals: Lam Barreto MD [Medical Doctor] - follow up in 1 week Minda Garcia MD [Medical Doctor] - follow up in 2 weeks Kelly Glass MD [Primary Care Provider] - As per Instructions (in 2-4 weeks)
--- NOTE | 2017-02-22 14:33 | PDDCSUM ---
Discharge Summary Discharge Summary: DISCHARGE SUMMARY FOLLOW-UP ITEMS: Reassess motor and cognitive skills, outpatient driving test DATE OF ADMISSION: 02/15/2017 DATE OF DISCHARGE: 02/22/2017 DISCHARGE DIAGNOSES: 1. Acute West Nile virus meningoencephalitis 2. Acute atelectasis 3. Chronic hypertension CONSULTATIONS: Neurology, Infectious Disease PROCEDURES / IMAGING: Head CT within normal limits, CT angiogram of chest demonstrating no pulmonary embolism, atelectasis CHIEF COMPLAINT: Acute fatigue and fever SUBJECTIVE: Patient continues to experience some fatigue as well as cognitive slowing PHYSICAL EXAM ON DISCHARGE: Systolic blood pressure is 110-140, heart rate 60, afebrile over the last 48 hours, satting 90-92% on room air with exertion, alert awake oriented x3, pain level 0 10, cooperative and follows commands, lungs with faint inspiratory crackles in the bilateral bases, clearing with cough LABS ON DISCHARGE: White blood cell count normal, creatinine normal HOSPITAL COURSE BY PROBLEM: 1. Acute West Nile virus meningoencephalitis. Patient presented with fever, rigors, fatigue, cognitive slowing secondary to acute West Nile virus infection. He underwent a lumbar puncture which demonstrated a lymphocyte predominant pleocytosis. His West Nile virus IgM antibody from 02/13/2017 came back positive. He received supportive care with IV fluids, IV pain medications , physical occupational and cognitive therapy. He was seen in consultation by Infectious Disease and Neurology. The patient continued to experience dense symptoms including fatigue, headache, cognitive slowing, requiring extended hospitalization. Once the symptoms were stabilized, and the patient was no longer experiencing headache, he was safe for discharge. He will have outpatient physical occupational and cognitive therapy and will have an outpatient driving test through either the neurology office or his primary care provider. 2. Atelectasis. Acute, incentive spirometer administered, the patient was weaned from supplemental oxygen at time of discharge. Pulmonary embolism was ruled out with CT angiogram. 3. Chronic hypertension. He was continued on his home medication. DISCHARGE MEDICATIONS: Please see official discharge medication reconciliation sheet in chart , as- needed Tarik prescribed time of discharge. DISCHARGE INSTRUCTIONS: Please follow up with Neurology, Infectious Disease, your primary care provider. TIME SPENT: Greater than 30 minutes were spent on direct patient care, as well as discharge planning and preparation.
== END 2017-02-22 15:03 | disposition home health service (06) | DRG 866 ==
LOC: F1N 15:16
PROVIDERS: ADMIT Internal Medicine; ATTEND Internal Medicine
PROC: 009U3ZX Drainage of Spinal Canal, Percutaneous Approach, Diagnostic (ICD-10-PCS; principal; 2017-02-15)
DX: A92.31 West Nile virus infection with encephalitis (principal); J98.11 Atelectasis; I10 Essential (primary) hypertension; E78.5 Hyperlipidemia, unspecified
CPT/HCPCS: 71020-PO; 80048-PO; 81003-PO; 81015-PO; 82550-PO; 82784-90; 83880-PO; 84443-PO; 84484-PO; 85025-PO; 85378-PO; 87798-90; 92507-GN; 92523-GN; 96374; 97116-GP; 97161-GP; 97165-GO; 97530-GP; G8978-GP-CJ; G8979-GP-CI; G8980-GP-CI; G8987-GO-CI; G8988-GO-CI; G8989-GO-CI; G9168-GN-CK; G9169-GN-CH; J1170; J1200; J1650; J1885; J2405; J2550; Q9967

== ENCOUNTER → 2018-09-28 | Outpatient (CLI) | payer OTHER | LOC: BHFA 09:00 | PROVIDERS: ATTEND Internal Medicine Cardiovascular Disease | DX: I25.10 Atherosclerotic heart disease of native coronary artery without angina pectoris (principal); R06.02 Shortness of breath | CPT/HCPCS: 78452; 93017; A9500; J2785 ==